=== PATIENT | female | born 1990 | race Two or more races ===

== ENCOUNTER 2019-01-31 06:58 | Emergency (ER) | payer OTHER ==
[~2019-01-31] VITALS: Ht 162.6 cm; Wt 53.5 kg
[2019-01-31] MEDS ORDERED: ORTHO TRI-CYCL1 EAC1 (07:37)
== END 2019-01-31 20:32 | disposition home or self-care (01) ==
LOC: ER 06:58
DX: R42 Dizziness and giddiness (principal)

== ENCOUNTER 2022-07-15 23:12 | Emergency (ER) | payer OTHER ==
[~2022-07-15] VITALS: Ht 162.6 cm; Wt 52.2 kg
[~2022-07-15 23:12] MED LIST: ORTHO TRI-CYCL1 EAC1
== END 2022-07-16 | disposition left against medical advice (07) ==
LOC: ER 23:12
DX: S00.93XA Contusion of unspecified part of head, initial encounter (principal); W18.39XA Other fall on same level, initial encounter; Y93.9 Activity, unspecified; Y92.512 Supermarket, store or market as the place of occurrence of the external cause; F10.90 Alcohol use, unspecified, uncomplicated; R41.82 Altered mental status, unspecified